=== PATIENT | female | born 1980 | race Caucasian/White ===

== ENCOUNTER 2023-01-12 20:33 | Outpatient (REF) | payer OTHER, SELFPAY ==
[2023-01-17 12:08] LABS: Age Gdln ACOG Testing Note (.); HPV Aptima Negative (Negative); IGP, Aptima HPV, rfx 16/18,45 Note (.)
== END 2023-01-12 20:34 | disposition home or self-care (01) ==
LOC: LAB 20:33
PROVIDERS: Visit Provider Physician Assistant
DX: Z01.419 Encounter for gynecological examination (general) (routine) without abnormal findings (principal)
CPT/HCPCS: G0145

== ENCOUNTER 2024-02-28 10:28 | Outpatient (OUT) | payer SELFPAY ==
--- NOTE | 2024-02-28 | MM_ITS ---
Patient Name: FAUSTINO BIRD MR#: [id number] : 1980 Exam Date: 02/28/2024 Ordering Doctor: DR Sachin Perdomo . RADIOLOGY REPORT PROCEDURE: MM TOMOSYNTHESIS SCREENING BI COMPARISON: MG MAMM SCREEN 3D BEAU CAD, 12/09/2020. INDICATIONS: Screening Mammogram Calculator Name NCI Breast Cancer Risk Assessment Tool 5 Year Breast Cancer Risk 3.00% Lifetime Breast Cancer Risk 19.90% Personal Breast Cancer No Personal Ovarian Cancer No Treatments None Family Cancers Grandmother-maternal with breast cancer at age ~50; Aunt-paternal with ovarian cancer at age 38. LOCATION: [facility] BREAST COMPOSITION: The breasts are extremely dense, which lowers the sensitivity of mammography. FINDINGS: DIAGNOSTIC CATEGORY 2--BENIGN FINDING. NO CHANGE FROM COMPARISON. Scattered benign-appearing calcifications are present. Scattered benign-appearing lymph nodes are present. RIGHT BREAST: No significant suspicious finding. LEFT BREAST: No significant suspicious finding. Two micro clip markers 6 o'clock mid breast, stable RECOMMENDATIONS: ROUTINE MAMMOGRAM AND CLINICAL EVALUATION IN 12 MONTHS. PLEASE NOTE: A NORMAL MAMMOGRAM DOES NOT EXCLUDE THE POSSIBILITY OF BREAST CANCER. A CLINICALLY SUSPICIOUS PALPABLE LUMP SHOULD BE BIOPSIED. Dictated by: Javier Etienne MD on 02/29/2024 at 07:20 Approved by: Javier Etienne MD on 02/29/2024 at 07:21
== END 2024-02-28 10:29 | disposition home or self-care (01) ==
LOC: MAMMO 02-29 10:28
PROVIDERS: Visit Provider Obstetrics & Gynecology
DX: Z12.31 Encounter for screening mammogram for malignant neoplasm of breast (principal); Z80.3 Family history of malignant neoplasm of breast; Z80.41 Family history of malignant neoplasm of ovary
CPT/HCPCS: 77063; 77067

== ENCOUNTER 2024-05-15 09:07 | Outpatient (REF) | payer OTHER, SELFPAY ==
--- OUTSIDE RECORDS SUMMARY | 2024-05-16 09:17 | XMS_ITS | CCD ---
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 for evaluation. Endocervical and/or squamous metaplastic cells (endocervical component) are present. Performed at: WB Performed By: #### [id number] #### [facility] [address] [place] [address] Dr. Sim George ECHO Complete 2D W Doppler W Coloron 02-19-2020 [facility] Transthoracic Echocardiography Report (TTE) Patient Name FERNANDO Date of Study 02/19/2020 FAUSTINO Tobias Date of 1980 Gender Female Age 39 year(s) Race Room Number Height: 67 inch, 170.18 cm Corporate ID [id number] Weight: 127 pounds, 57.6 kg # Patient Acct [id number] BSA: 1.67 m^2 BMI: 19.89 # kg/m^2 MR # [id number] [employer] Work,Shilpi Interpreting Physician Brian Littlejohn Fellow Referring Nurse Practitioner Interpreting Referring Physician Christina Natarajan Fellow Type of Study TTE procedure:2D Echocardiogram, M-Mode, Doppler, Color Doppler. Procedure Date Date: 02/19/2020 Start: 10:41 AM Study Location: [facility] Indications:Chest pain. History / Tech. Comments: Hx: tobacco use, family history of CAD Patient Status: Outpatient Height: 67 inches Weight: 127 pounds BSA: 1.67 m^2 BMI: 19.89 kg/m^2 BP: 111/65 mmHg CONCLUSIONS Summary Global left ventricular systolic function appears preserved with an estimated ejection fraction of 55%. Mildly increased left ventricular wall thickness with a normal left ventricular cavity size. Normal aortic valve structure and function without stenosis or regurgitation. No significant valvular disease was seen. No previous studies were available for comparison. No significant cardiac cause of chest pain was identified from this study. Signature FINDINGS Left Atrium Left atrium is normal in size. Left Ventricle Global left ventricular systolic function appears preserved with an estimated ejection fraction of 55%. Mildly increased left ventricular wall thickness with a normal left ventricular cavity size. Right Atrium Right atrium is normal in size. Right Ventricle Normal right ventricular size and function. Mitral Valve Normal mitral valve structure and function. Aortic Valve Normal aortic valve structure and function without stenosis or regurgitation. Tricuspid Valve Normal tricuspid valve structure with trivial tricuspid regurgitation. Pulmonic Valve The pulmonic valve is normal in structure. Pericardial Effusion No significant pericardial effusion is seen. Miscellaneous No clear evidence of diastolic dysfunction was identified. Normal aortic root dimension. M-mode / 2D Measurements & Calculations: LVIDd:4.6 cm(3.7 - 5.6 cm) Diastolic Volume:97.4 ml LVIDs:3.33 cm(2.2 - 4.0 cm) Systolic Volume:37.04 ml IVSd:0.76 cm(0.6 - 1.1 cm) Aortic Root:2.64 cm(2.0 - 3.7 cm) LVPWd:0.77 cm(0.6 - 1.1 cm) LA Dimension: 2.74 cm(1.9 - 4.0 cm) Fractional Shortenin.61 % LA volume/Index: 32.5 ml /19m^2 Calculated LVEF (%): 61.97 % AV Cusp Separation: 1.87 cm Mitral: Aortic Valve Area (P1/2-Time): 2.66 cm^2 Peak Velocity: 1.39 m/s Peak E-Wave: 0.63 m/s Mean Velocity: 1.01 m/s Peak A-Wave: 0.36 m/s Peak Gradient: 7.77 mmHg E/A Ratio: 1.76 Mean Gradient: 4.38 mmHg Peak Gradient: 1.6 mmHg Acceleration Time: 93.93 msec P1/2t: 82.79 msec AV VTI: 27.26 cm Diastology / Tissue Doppler Lateral Wall E' velocity:0.16 m/s Lateral Wall E/E':3.6 [facility] [place], [place] Js, pn Incoming Cardio Results From [facility] - 02/19/2020 5:49 PM EDT [facility] Transthoracic Echocardiography Report (TTE) Patient Name FERNANDO Date of Study 02/19/2020 FAUSTINO Tobias Date of 1980 Gender Female Age 39 year(s) Race Room Number Height: 67 inch, 170.18 cm Corporate ID [id number] Weight: 127 pounds, 57.6 kg # Patient Acct [id number] BSA: 1.67 m^2 BMI: 19.89 # kg/m^2 MR # [id number] [employer] Engineer Shilpi Paul Interpreting Physician Brian Littlejohn Fellow Referring Nurse Practitioner Interpreting Referring Physician Christina Natarajan Type of Study TTE procedure:2D Echocardiogram, M-Mode, Doppler, Color Doppler. Procedure Date Date: 02/19/2020 Start: 10:41 AM Study Location: [facility] Indications:Chest pain. History / Tech. Comments: Hx: tobacco use, family history of CAD Patient Status: Outpatient Height: 67 inches Weight: 127 pounds BSA: 1.67 m^2 BMI: 19.89 kg/m^2 BP: 111/65 mmHg CONCLUSIONS Summary Global left ventricular systolic function appears preserved with an estimated ejection fraction of 55%. Mildly increased left ventricular wall thickness with a normal left ventricular cavity size. Normal aortic valve structure and function without stenosis or regurgitation. No significant valvular disease was seen. No previous studies were available for comparison. No significant cardiac cause of chest pain was identified from this study. Signature --------- - --------- - --------- - --------- - FINDINGS Left Atrium Left atrium is normal in size. Left Ventricle Global left ventricular systolic function appears preserved with an estimated ejection fraction of 55%. Mildly increased left ventricular wall thickness with a normal left ventricular cavity size. Right Atrium Right atrium is normal in size. Right Ventricle Normal right ventricular size and function. Mitral Valve Normal mitral valve structure and function. Aortic Valve Normal aortic valve structure and function without stenosis or regurgitation. Tricuspid Valve Normal tricuspid valve structure with trivial tricuspid regurgitation. Pulmonic Valve The pulmonic valve is normal in structure. Pericardial Effusion No significant pericardial effusion is seen. Miscellaneous No clear evidence of diastolic dysfunction was identified. Normal aortic root dimension. M-mode / 2D Measurements & Calculations: LVIDd:4.6 cm(3.7 - 5.6 cm) Diastolic Volume:97.4 ml LVIDs:3.33 cm(2.2 - 4.0 cm) Systolic Volume:37.04 ml IVSd:0.76 cm(0.6 - 1.1 cm) Aortic Root:2.64 cm(2.0 - 3.7 cm) LVPWd:0.77 cm(0.6 - 1.1 cm) LA Dimension: 2.74 cm(1.9 - 4.0 cm) Fractional Shortenin.61 % LA volume/Index: 32.5 ml /19m^2 Calculated LVEF (%): 61.97 % AV Cusp Separation: 1.87 cm Mitral: Aortic Valve Area (P1/2-Time): 2.66 cm^2 Peak Velocity: 1.39 m/s Peak E-Wave: 0.63 m/s Mean Velocity: 1.01 m/s Peak A-Wave: 0.36 m/s Peak Gradient: 7.77 mmHg E/A Ratio: 1.76 Mean Gradient: 4.38 mmHg Peak Gradient: 1.6 mmHg Acceleration Time: 93.93 msec P1/2t: 82.79 msec AV VTI: 27.26 cm Diastology / Tissue Doppler Lateral Wall E' velocity:0.16 m/s Lateral Wall E/E':3.6 [place], [place] Basic Metabolic Panelon 10- Anion gap [Moles/Vol] 10 mmol/L 9 - 17 mmol/L [place] Bun/Cre Ratio 26 High [place] Calcium [Mass/Vol] 9.1 mg/dL 8.6 - 10. 4 mg/dL [place] Chloride [Moles/Vol] 102 mmol/L 98 - 10 7 mmol/L [place] CO2 [Moles/Vol] 25 mmol/L 20 - 31 mmol/L [place] Creatinine [Mass/Vol] 0.47 mg/dL Low 0.5 - 0.9 mg/dL [place] GFR >60 >60 mL/min [place] GFR Non- >60 >60 mL/min [place] Glucose [Mass/Vol] 93 mg/dL 70 - 99 mg/dL [place] Interpretation and review of laboratory results Abnormal [place] Potassium [Moles/Vol] 4.3 mmol/L 3.7 - 5.3 mmol/L [place] Sodium [Moles/Vol] 137 mmol/L 135 - 144 mmol/L [place] Urea nitrogen [Mass/Vol] 12 mg/dL 6 - 20 mg/dL [place] CBC Auto Differentialon - Basophils (Bld) [#/Vol] 0.03 10*3/uL [place] Basophils/100 WBC (Bld) 1 % 0 - 2 % [place] Differential Type NOT REPORTED [place] Eosinophils (Bld) [#/Vol] 0.24 10*3/uL [place] Eosinophils/100 WBC (Bld) 4 % 1 - 4 % [place] Erythrocyte distribution width (RBC) [Ratio] 12.0 % 11.8 - 14.4 % [place] Hematocrit (Bld) [Volume fraction] 41.2 % 36.3 - 47.1 % [place] Hemoglobin (Bld) [Mass/Vol] 13.6 g/dL 11.9 - 15.1 g/dL [place] Immature granulocytes (Bld) [#/Vol] 1 % High 0 [place] Immature granulocytes (Bld) [#/Vol] 0.03 10*3/uL [place] Interpretation and review of laboratory results Abnormal [place] Lymphocytes (Bld) [#/Vol] 1.21 10*3/uL [place] Lymphocytes/100 WBC (Bld) 22 % Low 24 - 43 % [place] MCH (RBC) [Entitic mass] 31.8 pg 25.2 - 33.5 pg [place] MCHC (RBC) [Mass/Vol] 33.0 g/dL 28.4 - 34.8 g/dL [place] MCV (RBC) [Entitic vol] 96.3 fL 82.6 - 102.9 fL [place] Monocytes (Bld) [#/Vol] 0.57 10*3/uL [place] Monocytes/100 WBC (Bld) 10 % 3 - 12 % [place] Platelet mean volume (Bld) [Entitic vol] 9.4 fL 8.1 - 13.5 fL [place] Platelets (Bld) [#/Vol] 157 10*3/uL [place] Platelets (Bld) [#/Vol] NOT REPORTED [place] RBC (Bld) [#/Vol] 4.28 10*6/uL 3.95 - 5.1 1 m/uL [place] RBC morphology finding Nom (Bld) NOT REPORTED [place] Segmented neutrophils/100 WBC (Bld) 62 % 36 - 65 % [place] Segs Absolute 3.47 [place] WBC (Bld) [#/Vol] 5.6 10*3/uL [place] WBC (Bld) [#/Vol] 0.0 10*3/uL 0.0 per 10 0 WBC [place] WBC Morphology NOT REPORTED [place], [place] D-Dimer, Quantitativeon 10 D-Dimer, Quant <0.27 [facility] [place] Comment on above: When combined with a low clinical probability, a D dimer value of <0.50 mg/L FEU is considered negative for DVT and PE (negative predictive value of 98%, sensitivity of 97%). If this test is not being used to help rule out DVT and PE, then the following reference range should be utilized: 0.00 - 0.59 mg/L FEU. The D-Dimer assay is intended for use as an aid in the diagnosis of venous thromboembolism (DVT and PE) and the results should be interpreted in conjunction with the patient's medical history, clinical presentation, and other findings. Elevated levels of D-dimer activity can be seen in any state of coagulation activation and is not recommended in patients with therapeutic dose anticoagulant therapy for >24 hours, fibrinolytic therapy within the previous 7 days, trauma or surgery within the previous 4 weeks, disseminated malignancies, aortic aneurysm, sepsis, severe infections, pneumonia, severe skin infections, liver cirrhosis, advanced age, coronary disease, diabetes, and . A very low percentage of patients with DVT may yield D-dimer results below the cutoff of 0.5 mg/L FEU. This is known to be more prevalent in patients with distal DVT. Metabolic Panelon 01-31-2020 GFR/1.73 sq M predicted among non-blacks MDRD (S/P/Bld) [Vol rate/Area] [place], [place] Comment on above: Average GFR for 40-4 9 years old: 99 mL/min/1.73sq m Chronic Kidney Disease: <60 mL/min/1.73sq m Kidney failure: <15 mL/min/1.73sq m eGFR calculated using average adult body mass. Additional eGFR calculator available at: http://www.[employer]/multiple_crcl_2012.htm Stage 1: Some kidney damage normal GFR Stage 2: Mild kidney damage GFR 60-89 Stage 3: Moderate kidney damage GFR 30-59 Stage 4: Severe kidney damage GFR 15-29 Stage 5: Severe kidney damage GFR <15 ESRD - chronic treatment by dialysis or transplant Troponinon 01-31-2020 Troponin I.cardiac [Mass/Vol] NOT REPORTED [place] Troponin T.cardiac [Mass/Vol] NOT REPORTED <0.03 ng/mL [place] Troponin, High Sensitivity <6 0 - 14 ng/L [place] Comment on above: High Sensitivity Troponin values cannot be compared with other Troponin methodologies. Patients with high levels of Biotin oral intake (i.e >5mg/day) may have falsely decreased Troponin levels. Samples collected within 8 hours of biotin intake may require additional information for diagnosis. Troponin I.cardiac [Mass/Vol] NOT REPORTED [place] Troponin T.cardiac [Mass/Vol] NOT REPORTED <0.03 ng/mL [place] Troponin, High Sensitivity 6 ng/L 0 - 14 ng/L [place] Comment on above: High Sensitivity Troponin values cannot be compared with other Troponin methodologies. Patients with high levels of Biotin oral intake (i.e >5mg/day) may have falsely decreased Troponin levels. Samples collected within 8 hours of biotin intake may require additional information for diagnosis. XR CHEST PORTABLEon 01-31-20 Js, pn Incoming Radiant Results From [facility] [employer] [employer] - 01/31/2020 9:18 AM EDT EXAMINATION: ONE XRAY VIEW OF THE CHEST 01/31/2020 8:25 am COMPARISON: None HISTORY: ORDERING SYSTEM PROVIDED HISTORY: cp TECHNOLOGIST PROVIDED HISTORY: cp FINDINGS: The cardiomediastinal silhouette is normal. No focal consolidation. The pulmonary vascularity is normal. There is no pleural effusion or pneumothorax. Osseous structures grossly intact. IMPRESSION: No focal consolidation. No acute process. [place] EXAMINATION: ONE XRA Y VIEW OF THE CHEST 01/31/2020 8:25 am COMPARISON: None HISTORY: ORDERING SYSTEM PROVIDED HISTORY: cp TECHNOLOGIST PROVIDED HISTORY: cp FINDINGS: The cardiomediastinal silhouette is normal. No focal consolidation. The pulmonary vascularity is normal. There is no pleural effusion or pneumothorax. Osseous structures grossly intact. [place] No focal consolidation. No acute process. [place] Vital Signs Date Time Vital Sign Value Performing Clinician Facility 05-15-2024 11:30-0500 Body weight 71.67 kg Itzel COWAN Work Phone: [facility] 01-31-2023 14:46-0400 Body height 170.2 cm Kt Holman MD Work Phone: [facility] 01-31-2023 14:46-0400 Body mass index (BMI) [Ratio] 24.26 kg/m2 Kt Holman MD Work Phone: [facility] 01-31-2023 14:46-0400 Body temperature 97.7 [degF] Kt Holman MD Work Phone: [facility] 01-31-2023 14:46-0400 Body weight 70.26 kg Kt Holman MD Work Phone: [facility] 01-31-2020 11:34-0400 BP Diastolic 50 mm[Hg] [facility] [place] 01-31-2020 11:34-0400 BP Systolic 107 mm[Hg] [place] 01-31-2020 11:34-0400 Pulse (Heart Rate) 62 /min [facility] [place] 01-31-2020 11:34-0400 Respiratory Rate 15 /min Fabien [facility]- O , [place] 01-31-2020 09:45-0400 Pulse Oximetry 97 % [facility] [place] 01-31-2020 08:10-0400 Body Temperature 98.71 [degF] Fabien [employer] O , MD Encounters Encounter Date Encounter Type Care Provider Facility Start: 05-15-2024 End: 05-15-2024 Bamboo flowsheet Itzel COWAN Work Phone: [facility] Start: 05-15-2024 End: 05-15-2024 Bamboo flowsheet Itzel COWAN Work Phone: [facility] Start: 05-15-2024 End: 05-15-2024 Clinisync Result Encounter Itzel COWAN Work Phone: [facility] External Department Unsolicited Start: 05-15-2024 End: 05-15-2024 Patient encounter procedure Itzel COWAN Work Phone: [facility] Start: 05-15-2024 End: 05-15-2024 Periodic preventive med est patient 40-64yrs Itzel COWAN Work Phone: [facility] Comment on above: Well woman exam with routine gynecological exam; Breast cancer screening by mammogram; Amenorrhea Start: 02-28-2024 End: 02-28-2024 Telephone encounter Rosina Torres CMA [facility] Comment on above: appointment due Start: 01-31-2023 End: 01-31-2023 ambulatory KT HOLMAN [facility] Start: 01-31-2023 End: 01-31-2023 Office outpatient visit 15 minutes Kt Holman MD Work Phone: [facility] Comment on above: Closed fracture of l arynx and trachea, subsequent encounter (Primary Dx) Start: 01-16-2023 End: 01-17-2023 ambulatory PCP UNKNOWN Facility:[facility] Start: 01-16-2023 End: 01-16-2023 Emergency department patient visit [facility] Start: 10-13-2022 ambulatory Dianna Araya S [facility] Start: 12-08-2021 End: 12-08-[address] RUBIO PADILLA Facility: Start: 05-06-2021 ambulatory [facility] Facility : Start: 02-19-2020 End: 02-19-2020 Subsequent hospital visit by physician [facility] Echo Room [facility] Echocardiography Comment on above: Atypical chest pain; Tobacco abuse counseling; Family history of premature coronary heart disease Start: 01-31-2020 End: 01-31-2020 Emergency department patient visit Fabien Ordaz Work Phone: [facility] ED Comment on above: Atypical chest pain (Primary Dx) Procedures Date Procedure Procedure Detail Performing Clinician Start: 05-15-2024 ALL CBC WITH AUTO DIFF Itzel COWAN Work Phone: Start: 01-20-2023 Adult depression scr eening assessment Rosina Torres CMA Start: 01-16-2023 Antibody screen PCP LINO QUISPE Comment on above: Performed By: #### T +S ####[id number] [place] [address] Start: 02-19-2020 Echo tthrc r-t 2d w/wom-mode compl spec&colr d Christina Cira Charisse Natarajan Work Phone: Start: 01-31-2020 Assay of troponin quantitative Fabien Radha Ordaz Work Phone: Start: 01-31-2020 Assay of troponin quantitative Fabien Radha Ordaz Work Phone: Start: 01-31-2020 Basic metabolic pane l calcium total Fabien E [employer] Work Phone: Start: 01-31-2020 Blood count complete auto&auto difrntl wbc Fabien Radha [employer] Work Phone: Start: 01-31-2020 Fibrin dgradj produc ts d-dimer quantitative Fabien Radha [employer] Work Phone: Start: 01-31-2020 Radiologic exam ches t single view Fabien Radha Ordaz Work Phone: Plan of Treatment Date Care Activity Detail Author Start: 2028 Zoster Vaccines (1 o f 2) Zoster Vaccines (1 of 2) [facility] Start: 05-20-2025 End: 05-20-2025 Patient encounter procedure 05/20/2025 10:00 AM EST Office Visit [facility] [address] [place] [address] Itzel Dominguez PA [address] [address] [facility] Start: 05-15-2024 End: 07-13-2025 MG Breast - bilateral Screening Bilateral screening mammogram Imaging Routine Breast cancer screening by mammogram Expected: 05/15/2024 (Approximate), Expires: 07/13/2025 [facility] Work Phone: Comment on above: Expected: 05/15/2024 (Approximate), Expires: 07/13/2025 Start: 05-15-2024 End: 05-15-2025 US Pelvis US Pelvis w/ TV Imaging Routine Amenorrhea Expected: 05/15/2024, Expires: 05/15/2025 [facility] Comment on above: Expected: 05/15/2024 , Expires: 05/15/2025 Start: 05-15-2024 End: 05-15-2024 Patient encounter procedure 05/15/2024 11:00 AM EST Office Visit [facility] [address] [place] [address] Itzel Dominguez PA [address] [place] [address] Arrived [facility] Comment on above: Arrived Start: 01-23-2024 Tobacco Screening Tobacco Screening [facility] Start: 01-21-2024 Adult BMI Screening Adult BMI Screen ing [facility] Start: 01-21-2024 Depression Screening Depression Scre ening [facility] Start: 12-25-2023 Influenza vaccination Influenza Vacc ine [facility] Start: 12-24-2022 Influenza vaccination Influenza Vacc ine (#1) [facility] Start: 12-25-2019 Influenza vaccination Flu vaccine (# 1) [place], [place] Start: 2018 Lipid panel Lipid screen [place], [place] Start: 2018 Screening for malign ant neoplasm of breast Mammogram [facility] Start: 2000 DTaP/Tdap/Td Vaccine s (1 - Tdap) DTaP/Tdap/Td Vaccines (1 - Tdap) [facility] Start: 09-27-1999 Screening for malign ant neoplasm of cervix [facility] Start: 1997 DTaP,Tdap and Td Vaccines (1 - Tdap) DTaP,Tdap and Td Vaccines (1 - Tdap) [facility] Start: 1997 DTaP/Tdap/Td vaccine (1 - Tdap) DTaP/Tdap/Td vaccine (1 - Tdap) [place] Start: 1996 Hepatitis C screening Hepatitis C Sc [facility] Start: 1993 HIV screening HIV screen [facility] [place] Start: 1984 Pneumococcal 0-64 ye ars Vaccine (1 of 1 - PPSV23) Pneumococcal 0-64 years Vaccine (1 of 1 - PPSV23) [place] Start: 09-27-1979 MMR Vaccines (1 of 1 - Standard series) MMR Vaccines (1 of 1 - Standard series) [facility] Start: 03-28-1979 COVID-19 Vaccine (#1) COVID-19 Vacci ne (#1) [facility] Start: 1978 Hepatitis B Vaccines (1 of 3 - 3-dose series) Hepatitis B Vaccines (1 of 3 - 3-dose series) [facility] Start: 1978 HIV screening HIV Screening [facility] Start: 1978 Lipid panel Lipid Panel [facility] Start: 1978 Yearly Adult Physical Yearly Adult P hysical [facility] CBC W Auto Different ial panel - Blood CBC and differential Lab Routine Amenorrhea Ordered: 05/15/2024 [facility] Comment on above: Ordered: 05/15/2024 EKG 12 Lead EKG 12 Lead ECG STAT 01/31/2020 8:13 AM EDT [place] hCG, quantitative, hCG, quantitative, Lab Routine Amenorrhea Ordered: 05/15/2024 [facility] Comment on above: Ordered: 05/15/2024 Hemoglobin A1c/Hemoglobin.total in Blood Hemoglobin A1c Lab Routine Amenorrhea Ordered: 05/15/2024 [facility] Comment on above: Ordered: 05/15/2024 Prolactin Prolactin Lab Ro utine Amenorrhea Ordered: 05/15/2024 [facility] Comment on above: Ordered: 05/15/2024 THIN PREP TIS PAP AN D HR HPV DNA THIN PREP TIS PAP AND HR HPV DNA Pathology and Cytology Routine Well woman exam with routine gynecological exam Ordered: 05/15/2024 [facility] Comment on above: Ordered: 05/15/2024 Thyrotropin [Units/volume] in Serum or Plasma TSH Lab Routine Amenorrhea Ordered: 05/15/2024 [facility] Comment on above: Ordered: 05/15/2024 Immunizations Immunization Date Immunization Notes Care Provider [facility] 04-21-2020 influenza, injectabl e, quadrivalent, preservative free tK Holman MD Work Phone: [facility] 04-21-2020 influenza virus vaccine, unspecified formulation [facility]t Hol[facility]-16-2019 influenza, injectabl e, quadrivalent, preservative free Kt Holman MD Work Phone: [facility] Payers Date Payer Category Payer Medicaid HMO [employer] [id number] 2022 [facility] Health Insurance [facility] MEDICAID [id number] 2018 Unknown [id number] 2018 Unknown [employer] [facility] [id number] 2018-Present [address] [place] [address] [id number] 1978 Unknown [id number] 1978 Unknown [id number] 1978 Unknown [id number] 1978 Unknown [id number] 1978 Unknown [id number] 1959 Self-pay [id number] 1959 Unknown [id number] Social History Date Type Detail Facility Start: 01-31-2020 End: 01-20-2023 Tobacco smoking status [facility]IS Current every day smoker [place], [place] Start: 04-25-1989 History of tobacco use Cigarette Smo ker [place] Start: 01-31-2020 End: 06-05-2020 Cigarettes smoked current (pack per day) - Reported [place] Start: 01-31-2020 End: 01-20-2023 Tobacco use and exposure Never used [place] Start: 1980 Sex Assigned At Not on file M [place] Start: 01-21-2023 End: 01-31-2023 Exposure to SARS-CoV-2 (event) Not sure [place] Start: 01-31-2023 Tobacco use and exposure Former smokeless tobacco user [facility] Work Phone: Start: 06-05-2020 End: 01-31-2023 Tobacco use panel [facility] Work Phone: Start: 01-22-2023 Alcoholic beverage intake Current drinker of alcohol (finding) [facility] Adolescent depressio n screening assessment 0 [facility] Start: 03-27-2019 Alcohol Comment occasional [facility] Start: 11-28-2014 Sex Female (finding) [facility] History of Present illness Narrative 05-15-2024 CHAPO Granados - 05/15/2024 11:00 AM EST Note Date & Type Note Facility 05-15-2024 History of Presen t illness Narrative Reason for Appointment: Patient ID: Faustino King is a 43 y.o. female who presents for Gynecologic Exam Patient presents today for Annual Exam. MEDICATIONS Current Outpatient Medications Medication Instructions Drospirenone (Slynd) 4 MG tablet 1 tablet, Oral, Daily ALLERGIES Allergies Allergen Reactions Fqoqyqz-Gjvkkgvn-Jmdazwicq-Hc Hives Bacitracin-Polymyxin B Hives PROBLEMS Active Ambulatory Problems Diagnosis Date Noted No Active Ambulatory Problems Resolved Ambulatory Problems Diagnosis Date Noted No Resolved Ambulatory Problems No Additional Past Medical History HISTORY PAST MEDICAL HISTORY SOCIAL HISTORY No past medical history on file. Social History Tobacco Use Smoking status: Not on file Smokeless tobacco: Not on file Substance Use Topics Alcohol use: Not on file Drug use: Not on file FAMILY HISTORY No family history on file. SURGICAL HISTORY Past Surgical History: Procedure Laterality Date CT ANGIOGRAM NECK 01/16/2023 CT ANGIOGRAM NECK 01/16/2023 REVIEW OF SYSTEMS Review of Systems: Review of Systems Constitutional: Negative. HENT: Negative. Eyes: Negative. Respiratory: Negative. Cardiovascular: Negative. Gastrointestinal: Negative. Genitourinary: Negative. Musculoskeletal: Negative. Skin: Negative. Neurological: Negative. All other systems reviewed and are negative. Hematological: Negative. Endocrine: Negative. Allergic/Immunologic: Negative. OBJECTIVE Objective: Physical Exam Constitutional: Appearance: Normal appearance. Genitourinary: Right Adnexa: not tender and no mass present. Left Adnexa: not tender and no mass present. No cervical discharge. Breasts: Breasts are soft. Right: Normal. Left: Normal. HENT: Head: Normocephalic. Nose: Nose normal. Mouth/Throat: Mouth: Mucous membranes are moist. Cardiovascular: Rate and Rhythm: Normal rate. Pulmonary: Effort: Pulmonary effort is normal. Abdominal: General: Bowel sounds are normal. Palpations: Abdomen is soft. Musculoskeletal: General: Normal range of motion. Cervical back: Normal range of motion. Neurological: General: No focal deficit present. Mental Status: She is alert. Skin: General: Skin is warm and dry. Psychiatric: Mood and Affect: Mood normal. Vitals and nursing note reviewed. Exam conducted with a juvenile officer present. Vitals: There is no height or weight on file to calculate BMI. BP: No LMP recorded.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
[2024-05-18 12:08] LABS: Age Gdln ACOG Testing Note (.); HPV Aptima Negative (Negative); IGP, Aptima HPV, rfx 16/18,45 Note (.)
== END 2024-05-15 09:08 | disposition home or self-care (01) ==
LOC: LAB 09:07
PROVIDERS: Visit Provider Physician Assistant
DX: Z01.419 Encounter for gynecological examination (general) (routine) without abnormal findings (principal)
CPT/HCPCS: 87624; 88175

== ENCOUNTER 2024-05-15 11:55 | Outpatient (OUT) | payer OTHER, SELFPAY ==
[2024-05-15 12:50] LABS: Basophils Percent Auto 0.6 % (0.2-2.0); Eosinophils Absolute Auto 0.1 10^3/uL (0.0-0.7); Eosinophils Percent Auto 0.8 % (0.9-7.0); Hemoglobin 14.9 g/dL (12.0-16.0); Immature Granulocytes Abs Auto 0.02 10^3/uL (0.00-0.03); Immature Granulocytes Pct Auto 0.3 % (0.0-0.5); Lymphocytes Absolute Auto 1.8 10^3/uL (1.2-3.8); Lymphocytes Percent Auto 27.3 % (20.5-60.0); Mean Corpuscular HGB Conc 33.1 g/dL (29.9-35.2); Mean Corpuscular Volume 93.8 fL (81.0-99.0); Mean Platelet Volume 9.5 fL (9.5-13.5); Monocytes Absolute Auto 0.5 10^3/uL (0.3-0.8); Monocytes Percent Auto 7.8 % (1.7-12.0); Neutrophils Absolute Auto 4.1 10^3/uL (1.4-6.5); Neutrophils Percent Auto 63.2 % (43.0-75.0); Platelet Count 184 10^3/uL (150-450); Red Cell Distribution Width 12.2 % (11.0-15.0); White Blood Count 6.5 10^3/uL (4.0-11.0)
[2024-05-15 13:26] LABS: Thyroid Stimulating Hormone 0.755 uIU/mL (0.358-3.740)
[2024-05-15 13:30] LABS: HCG Quantitative <1 mIU/mL
[2024-05-15 14:01] LABS: Estimated Average Glucose 111 mg/dL; Glycohemoglobin A1C 5.5 % (4.5-6.2)
[2024-05-16 05:07] LABS: Prolactin 6.8 ng/mL (4.8-33.4)
== END 2024-05-15 11:56 | disposition home or self-care (01) ==
LOC: LAB 11:57
PROVIDERS: Visit Provider Physician Assistant
DX: Z01.419 Encounter for gynecological examination (general) (routine) without abnormal findings (principal); N91.2 Amenorrhea, unspecified
CPT/HCPCS: 36415; 83036; 84146; 84443; 84702; 85025; 87624; 88175